=== PATIENT | female | born 1975 | race Caucasian/White ===

== ENCOUNTER 2017-11-03 03:42 | Observation (INO) | payer OTHER ==
[~2017-11-03] VITALS: Ht 163.8 cm; Wt 81.6 kg
[2017-11-03] VITALS (11 sets, daily range): BP systolic 85–102; BP diastolic 48–69; PULSE 61–73; TEMP 36.4–37.1; O2SAT 97–99; Ht 163.8 cm; Wt 81.6 kg
[~2017-11-03 03:42] MED LIST: IBUP-1428 PO; [UNRECOGNIZED DRUG - CODE] BU
[2017-11-03] MEDS ORDERED: ONDANSETRON INJ 2 MG/ML 2 ML VIAL IV STA (04:07)
[2017-11-03] MEDS ORDERED: KETOROLAC TROMETHAMINE 30 MG/ML VIAL IV STA (04:07)
[2017-11-03] MEDS ORDERED: SODIUM CHLORIDE 0.9% 1000ML 1,000 ML IV ONE (04:15)
[2017-11-03 04:30] LABS: BASO % 0.1 %; BASO ABS # 0.02 K/uL (0-0.2); EOS % 0.1 %; EOS ABS # 0.02 K/uL (0-0.5); HEMATOCRIT 43.8 % (37-47); HEMOGLOBIN 14.9 g/dL (12.0-16.0); IG# 0.06 K/uL (0.00-0.02); LYMPH % 11.5 %; LYMPH ABS # 1.81 K/uL (1.2-3.4); MEAN CELL VOLUME 93.2 fL (80-100); MEAN CORPUSCULAR HEMOGLOBIN 31.7 pg (25-34); MEAN PLATELET VOLUME 10.4 fL (7.4-10.4); MONO % 4.6 %; MONO ABS # 0.72 K/uL (0.11-0.59); NEUT % 83.3 %; NEUT ABS # 13.13 K/uL (1.4-6.5); PLATELET COUNT 262 K/uL (130-400); RED CELL DISTRIBUTION WIDTH CV 13.3 % (11.5-14.5); WHITE BLOOD COUNT 15.76 K/uL (4.8-10.8)
[2017-11-03 04:48] LABS: ALBUMIN 3.7 gm/dl (3.4-5.0); CALCIUM 8.6 mg/dl (8.5-10.1); CREATININE 0.79 mg/dl (0.60-1.20); POTASSIUM 3.8 mmol/L (3.5-5.1)
[2017-11-03 04:50] LABS: TOTAL PROTEIN 7.5 gm/dl (6.4-8.2)
[2017-11-03] MEDS ORDERED: CEFOXITIN 2000MG/60 ML D5W IV STA (05:50)
[2017-11-03] MEDS ORDERED: CEFOXITIN IV 2,000 MG in DEXTROSE 5% 50ML 50 ML IV STA (05:55)
--- NOTE | 2017-11-03 06:19 | DIAGNOSTIC IMAGING REPORT ---
GALLBLADDER-ABD LIMITED CLINICAL HISTORY: 42 years-old Female presenting with ruq abd pain. TECHNIQUE: Real-time grayscale and limited color Doppler ultrasound imaging of the abdomen limited to the right upper quadrant was performed. COMPARISON: None. FINDINGS: Pancreas: Visualized portions of the pancreatic head and body normal. Liver: Normal echogenicity and echotexture. The liver measures 16.5 cm in maximal sagittal dimension. No sonographic evidence of hepatic mass. Main portal vein patent with normal directional flow. Biliary: No intrahepatic biliary ductal dilatation. Common bile duct measures up to 5 mm in diameter. Gallbladder: Distended measuring over 16 cm in length with gallstones and sludge evident. Wall thickening measuring 4 to 5 mm. No pericholecystic fluid. Right kidney: Normal in appearance. No hydronephrosis. Ascites: None. IMPRESSION: Findings suggest early acute cholecystitis. If there is need for further clinical confirmation, nuclear medicine hepatobiliary scan could be obtained. Electronically signed by: Chandler Limon M.D. 11/03/2017 6:18 AM Dictated Date/Time: 11/03/2017 6:16 AM
--- NOTE | 2017-11-03 08:21 | History and Physical ---
History & Physical Date & Time of Service: Nov 03, 2017 at 08:12 Chief Complaint: Vomiting Bile,Nausea,Paiin In Mid Section Primary Care Physician: Nathan Duran M.D. History of Present Illness Source: patient 42 y/o female began with abdominal pain about a day and a half ago. She has had episodes of discomfort in the similar area but never this severe. She has a long history of reflux and has been on different proton pump inhibitors for many years. This seems to be different than those symptoms. The discomfort is located in the right subcostal region. Does not radiate around to her back. It began after eating macaroni and cheese and Oreos. It was associated with nausea but she did not begin vomiting until last night at about 9 PM. There was no hematemesis. She had diarrhea yesterday on one occasion but has not had chronic diarrhea. There was no melena or hematochezia. She denies dysuria and hematuria. She has not had fever or chills. She has no history of jaundice, pancreatitis or hepatitis. Past Medical/Surgical History PMH: Fibromyalgia Hypothyroidism, stopped taking medication one year ago Orthostatic hypotension Syncopal episodes probably secondary to orthostatic hypotension PSH: Bilateral carpal tunnel syndrome Tubal ligation [place] teeth Social History Smoking Status: Current Some Day Smoker Smokeless Tobacco Use: No Alcohol Use: none Immunizations History of Influenza Vaccine: No History of Tetanus Vaccine?: Yes Tetanus Immunization Date: May 02, 2001 History of Pneumococcal: No History of Hepatitis B Vaccine: No Multi-Drug Resistant Organisms History of MDRO: No Allergies Coded Allergies: Adhesives (Verified Allergy, Unknown, TAPE, 03/11/14) Home Medications Scheduled PRN Ibuprofen (Motrin), 800 MG PO TID PRN for Pain Review of Systems Constitutional: No fever, No chills Respiratory: No cough, No sputum Abdomen: + problem reported (as per HPI) Musculoskeletal: + muscle pain ( history of fibromyalgia) Genitourinary - Female: + problem reported (as per HPI) Integumentary: No rash Physical Exam Vital Signs Date Time Temp Pulse Resp B/P (MAP) Pulse Ox O2 Delivery O2 Flow Rate FiO2 11/03/17 07:10 36.5 66 16 99/68 100 Room Air 11/03/17 05:01 68 18 124/78 100 Room Air 11/03/17 03:49 36.5 78 18 146/93 100 Room Air General Appearance: WD/WN, no apparent distress Head: normocephalic Neck: supple, no adenopathy Respiratory/Chest: chest non-tender, lungs clear Cardiovascular: regular rate, rhythm Abdomen/GI: normal bowel sounds, soft, + tenderness (right subcostal region) Back: normal inspection Skin: normal color Diagnostics Laboratory Results Results Past 24 Hours Test 11/03/17 04:15 11/03/17 04:20 Range/Units Urine Color DK YELLOW Urine Appearance CLOUDY CLEAR Urine pH 5.0 4.5-7.5 Urine Specific [place] 1.030 1.000-1.030 Urine Protein NEG NEG Urine Glucose (UA) NEG NEG Urine Ketones 1+ NEG Urine Occult Blood 2+ NEG Urine Nitrite NEG NEG Urine Bilirubin NEG NEG Urine Urobilinogen NEG NEG Urine Leukocyte Esterase NEG NEG Urine WBC (Auto) 5-10 0-5 /hpf Urine RBC (Auto) 5-10 0-4 /hpf Urine Hyaline Casts (Auto) 1-5 0-5 /lpf Urine Epithelial Cells (Auto) >30 0-5 /lpf Urine Bacteria (Auto) 2+ NEG Urine Mucus PRESENT NONE PRSENT Urine Yeast (Auto) BUDDING NONE PRSENT Urine Test NEG NEG White Blood Count 15.76 4.8-10.8 K/uL Red Blood Count 4.70 4.2-5.4 M/uL Hemoglobin 14.9 12.0-16.0 g/dL Hematocrit 43.8 37-47 % Mean Corpuscular Volume 93.2 80-100 fL Mean Corpuscular Hemoglobin 31.7 25-34 pg Mean Corpuscular Hemoglobin Concent 34.0 32-36 g/dl Platelet Count 262 130-400 K/uL Mean Platelet Volume 10.4 7.4-10.4 fL Neutrophils (%) (Auto) 83.3 % Lymphocytes (%) (Auto) 11.5 % Monocytes (%) (Auto) 4.6 % Eosinophils (%) (Auto) 0.1 % Basophils (%) (Auto) 0.1 % Neutrophils # (Auto) 13.13 1.4-6.5 K/uL Lymphocytes # (Auto) 1.81 1.2-3.4 K/uL Monocytes # (Auto) 0.72 0.11-0.59 K/uL Eosinophils # (Auto) 0.02 0-0.5 K/uL Basophils # (Auto) 0.02 0-0.2 K/uL RDW Standard Deviation 46.0 36.4-46.3 fL RDW Coefficient of Variation 13.3 11.5-14.5 % Immature Granulocyte % (Auto) 0.4 % Immature Granulocyte # (Auto) 0.06 0.00-0.02 K/uL Sodium Level 137 136-145 mmol/L Potassium Level 3.8 3.5-5.1 mmol/L Chloride Level 105 98-107 mmol/L Carbon Dioxide Level 27 21-32 mmol/L Anion Gap 5.0 3-11 mmol/L Blood Urea Nitrogen 11 7-18 mg/dl Creatinine 0.79 0.60-1.20 mg/dl Est Creatinine Clear Calc Drug Dose 94.9 ml/min Estimated GFR () 106.3 Estimated GFR (Non- 91.7 BUN/Creatinine Ratio 13.5 10-20 Random Glucose 99 70-99 mg/dl Calcium Level 8.6 8.5-10.1 mg/dl Total Bilirubin 0.6 0.2-1 mg/dl Aspartate Amino Transf (AST/SGOT) 13 15-37 U/L Alanine Aminotransferase (ALT/SGPT) 28 12-78 U/L Alkaline Phosphatase 55 45-117 U/L Total Protein 7.5 6.4-8.2 gm/dl Albumin 3.7 3.4-5.0 gm/dl Globulin 3.8 2.5-4.0 gm/dl Albumin/Globulin Ratio 1.0 0.9-2 Lipase 102 73-393 U/L Microbiology Results 11/03/17 Urine Culture, Received Pending Diagnostic Radiology GALLBLADDER-ABD LIMITED CLINICAL HISTORY: 42 years-old Female presenting with ruq abd pain. TECHNIQUE: Real-time grayscale and limited color Doppler ultrasound imaging of the abdomen limited to the right upper quadrant was performed. COMPARISON: None. FINDINGS: Pancreas: Visualized portions of the pancreatic head and body normal. Liver: Normal echogenicity and echotexture. The liver measures 16.5 cm in maximal sagittal dimension. No sonographic evidence of hepatic mass. Main portal vein patent with normal directional flow. Biliary: No intrahepatic biliary ductal dilatation. Common bile duct measures up to 5 mm in diameter. Gallbladder: Distended measuring over 16 cm in length with gallstones and sludge evident. Wall thickening measuring 4 to 5 mm. No pericholecystic fluid. Right kidney: Normal in appearance. No hydronephrosis. Ascites: None. IMPRESSION: Findings suggest early acute cholecystitis. If there is need for further clinical confirmation, nuclear medicine hepatobiliary scan could be obtained. Impression Assessment and Plan This patient's history, physical exam, laboratory and ultrasound findings all consistent with early acute cholecystitis. I recommended a laparoscopic cholecystectomy. I explained the possible need to convert to an open procedure. I explained the possible complications of the procedures and answered the patient's questions. She has signed a consent form.
[2017-11-03] MEDS ORDERED: MoRPHine SULFATE 4 MG/ML 1 ML CARP\\VIAL IV PRN ×2 (08:30→18:30)
[2017-11-03] MEDS ORDERED: IV FLUIDS COMPLETED PRN (08:45)
[2017-11-03] MEDS: SODIUM CHLORIDE 0.9% 1000ML 1,000 ML IV SCH ×2 (10:21→19:49)
[2017-11-03] MEDS: ONDANSETRON INJ 2 MG/ML 2 ML VIAL IV PRN ×2 (10:54→19:49)
[2017-11-03] MEDS ORDERED: INFLUENZA ADMINISTRATION CHARGE ONE (14:00)
[2017-11-03] MEDS ORDERED: INFLUENZA VIRUS QUAD VACCINE 0.5 ML SYR IM. ONE (14:00)
[2017-11-03] MEDS ORDERED: HEPARIN SOD (PORCINE) 1000 UNIT/ML 10 ML VIAL ONE (15:47)
[2017-11-03] MEDS ORDERED: BUPIVACAINE 0.5 % 5 MG/1 ML MPF 30ML VIAL ONE (15:47)
[2017-11-03] MEDS ORDERED: CEFAZOLIN SOD 1 GM VIAL ONE ×2 (15:47→16:32)
[2017-11-03] MEDS ORDERED: PROPOFOL IV EMULSION 10 MG/ML 20 ML VIAL IV ONE (15:48)
[2017-11-03] MEDS ORDERED: LIDOCAINE HCL 2% 2 ML VIAL (20MG/ML) ONE (15:48)
[2017-11-03] MEDS ORDERED: MIDAZOLAM HCL 1 MG/ML 2ML VIAL ONE (15:49)
[2017-11-03] MEDS ORDERED: ROCURONIUM BROMIDE 10 MG/ML 5 ML VIAL IV ONE (15:50)
[2017-11-03] MEDS ORDERED: FENTANYL CITRATE INJ 50 MCG/1 ML 2 ML VIAL ONE (15:50)
[2017-11-03] MEDS ORDERED: ATROPINE SULFATE 0.1 MG/ML 5ML SYR IV PRN (16:15)
[2017-11-03] MEDS ORDERED: ONDANSETRON INJ 2 MG/ML 2 ML VIAL IV PRN (16:15)
[2017-11-03] MEDS ORDERED: EpHEDrine SULFATE INJ 50 MG/ML AMP IV PRN (16:15)
[2017-11-03] MEDS ORDERED: PHENYLEPHRINE 100MCG/ML 5ML SYR IV PRN (16:15)
[2017-11-03] MEDS ORDERED: ONDANSETRON INJ 2 MG/ML 2 ML VIAL ONE (17:08)
[2017-11-03] MEDS ORDERED: PHENYLEPHRINE HCL INJ 10 MG/ML VIAL ONE (17:36)
--- NOTE | 2017-11-03 18:06 | Anesthesiology Progress Note ---
Anesthesia Post Op Note Date & Time Nov 03, 2017 at 18:05 Vital Signs Pain Intensity: 5.0 Vital Signs Past 12 Hours Date Time Temp Pulse Resp B/P (MAP) Pulse Ox O2 Delivery O2 Flow Rate FiO2 11/03/17 11:02 Room Air 11/03/17 10:00 36.9 61 12 102/66 98 Room Air 11/03/17 09:51 36.5 70 17 122/62 98 11/03/17 08:41 67 18 116/57 99 Room Air 11/03/17 07:10 36.5 66 16 99/68 100 Room Air Notes Mental Status: alert / awake / arousable, participated in evaluation Pt Amnestic to Procedure: Yes Nausea / Vomiting: adequately controlled Pain: adequately controlled Airway Patency, RR, SpO2: stable & adequate BP & HR: stable & adequate Hydration State: stable & adequate Anesthetic Complications: no major complications apparent
[2017-11-03] MEDS ORDERED: HYDROmorphone INJ 2 MG/ML SYR/VIAL ONE (18:14)
[2017-11-03] MEDS: HYDROmorphone INJ 2 MG/ML SYR/VIAL IV PRN ×4 (18:16→18:31)
--- NOTE | 2017-11-03 18:31 | [facility] Post Operative Brief Note ---
Immediate Operative Summary Operative Date Nov 03, 2017. Pre-Operative Diagnosis Acute cholecystitis Post-Operative Diagnosis Same Procedure(s) Performed Laparoscopic cholecystectomy Surgeon Dr Burgos Special Delivery Mail Carrier Surgeon(s) None Estimated Blood Loss 25ML Findings See dictation Specimens A. Gallbladder Drains None Anesthesia General Complication(s) None Disposition Recovery Room / PACU
[2017-11-03] MEDS ORDERED: NURSING VERBAL MED ORDER ONE ×2 (21:15→22:45)
[2017-11-03] MEDS ORDERED: SODIUM CHLORIDE 0.9% 1000ML 500 ML IV SCH ×2 (21:45→23:00)
--- NOTE | 2017-11-03 23:45 | EMERGENCY ROOM VISIT NOTE ---
History First contact with patient: 03:52 Chief Complaint: GI ASSESSMENT Stated Complaint: CHOLECYSTITIS Nursing Triage Summary: Patient reports RUQ abdominal pain for the past day and tonight started with N/ V and some constipation. History of Present Illness The patient is a 42 year old female who presents to the Emergency Room with complaints of right quadrant abdominal pain that has been worsening over the past 36 hours. The patient states that her symptoms began shortly after eating macaroni and cheese and oriented disease. She has been with nausea and bilious emesis. She is not had fever or chills. No lower abdominal pain. She essentially has not been eating since onset of symptoms. She has been trying to drink fluids, but even this is difficult. The patient has had symptoms that sound like biliary colic for several months. She does have a history of GERD, and previous visit was on proton pump inhibitors. Her discomfort does not feel like her normal GERD. She denies chance of . She has not had abdominal surgery in the past. She rates her discomfort an 8/10. Review of Systems More than 10 systems were reviewed and otherwise negative with the exception of history of present illness. Past Medical/Surgical History Medical Problems: (1) Cholecystitis Family History No pertinent family history Social History Smoking Status: Current Every Day Smoker Smokeless Tobacco Use: No Housing Status: lives with family Current/Historical Medications Scheduled PRN Ibuprofen (Motrin), 800 MG PO TID PRN for Pain Physical Exam Vital Signs Date Time Temp Pulse Resp B/P (MAP) Pulse Ox O2 Delivery O2 Flow Rate FiO2 11/03/17 07:10 36.5 66 16 99/68 100 Room Air 11/03/17 05:01 68 18 124/78 100 Room Air 11/03/17 03:49 36.5 78 18 146/93 100 Room Air Physical Exam VITALS: Vitals are noted on the nurse's note and reviewed by myself. Vital signs stable. GENERAL: Well-developed, well-nourished, white female, who is in no acute distress and resting comfortably. Patient is cooperative with the examination. HEAD: Normocephalic atraumatic. HEART: Regular rate and rhythm without murmurs gallops or rubs. LUNGS: Clear to auscultation bilaterally without wheezes, rales or rhonchi. No retractions or accessory muscle use. ABDOMEN: Positive normal bowel sounds x 4. Soft with distinct right upper quadrant tenderness on palpation. No rebound or guarding. No lower abdominal tenderness. No CVA tenderness. MUSCULOSKELETAL: No muscle atrophy, erythema, or edema noted. Full range of motion without joint tenderness in all extremities. Medical Decision & Procedures ER Provider Diagnostic Interpretation: GALLBLADDER-ABD LIMITED CLINICAL HISTORY: 42 years-old Female presenting with ruq abd pain. TECHNIQUE: Real-time grayscale and limited color Doppler ultrasound imaging of the abdomen limited to the right upper quadrant was performed. COMPARISON: None. FINDINGS: Pancreas: Visualized portions of the pancreatic head and body normal. Liver: Normal echogenicity and echotexture. The liver measures 16.5 cm in maximal sagittal dimension. No sonographic evidence of hepatic mass. Main portal vein patent with normal directional flow. Biliary: No intrahepatic biliary ductal dilatation. Common bile duct measures up to 5 mm in diameter. Gallbladder: Distended measuring over 16 cm in length with gallstones and sludge evident. Wall thickening measuring 4 to 5 mm. No pericholecystic fluid. Right kidney: Normal in appearance. No hydronephrosis. Ascites: None. IMPRESSION: Findings suggest early acute cholecystitis. If there is need for further clinical confirmation, nuclear medicine hepatobiliary scan could be obtained. Laboratory Results 11/03/17 04:20 Red Blood Count 4.70, Mean Corpuscular Volume 93.2, Mean Corpuscular Hemoglobin 31.7, Mean Corpuscular Hemoglobin Concent 34.0, Mean Platelet Volume 10.4, Neutrophils (%) (Auto) 83.3, Lymphocytes (%) (Auto) 11.5, Monocytes (%) (Auto) 4.6, Eosinophils (%) (Auto) 0.1, Basophils (%) (Auto) 0.1, Neutrophils # (Auto) 13.13, Lymphocytes # (Auto) 1.81, Monocytes # (Auto) 0.72, Eosinophils # (Auto) 0.02, Basophils # (Auto) 0.02 11/03/17 04:20 Test 11/03/17 04:15 11/03/17 04:20 Urine Color DK YELLOW Urine Appearance CLOUDY (CLEAR) Urine pH 5.0 (4.5-7.5) Urine Specific [place] 1.030 (1.000-1.030) Urine Protein NEG (NEG) Urine Glucose (UA) NEG (NEG) Urine Ketones 1+ (NEG) Urine Occult Blood 2+ (NEG) Urine Nitrite NEG (NEG) Urine Bilirubin NEG (NEG) Urine Urobilinogen NEG (NEG) Urine Leukocyte Esterase NEG (NEG) Urine WBC (Auto) 5-10 /hpf (0-5) Urine RBC (Auto) 5-10 /hpf (0-4) Urine Hyaline Casts (Auto) 1-5 /lpf (0-5) Urine Epithelial Cells (Auto) >30 /lpf (0-5) Urine Bacteria (Auto) 2+ (NEG) Urine Mucus PRESENT (NONE PRSENT) Urine Yeast (Auto) BUDDING (NONE PRSENT) Urine Test NEG (NEG) White Blood Count 15.76 K/uL (4.8-10.8) Red Blood Count 4.70 M/uL (4.2-5.4) Hemoglobin 14.9 g/dL (12.0-16.0) Hematocrit 43.8 % (37-47) Mean Corpuscular Volume 93.2 fL (80-100) Mean Corpuscular Hemoglobin 31.7 pg (25-34) Mean Corpuscular Hemoglobin Concent 34.0 g/dl (32-36) Platelet Count 262 K/uL (130-400) Mean Platelet Volume 10.4 fL (7.4-10.4) Neutrophils (%) (Auto) 83.3 % Lymphocytes (%) (Auto) 11.5 % Monocytes (%) (Auto) 4.6 % Eosinophils (%) (Auto) 0.1 % Basophils (%) (Auto) 0.1 % Neutrophils # (Auto) 13.13 K/uL (1.4-6.5) Lymphocytes # (Auto) 1.81 K/uL (1.2-3.4) Monocytes # (Auto) 0.72 K/uL (0.11-0.59) Eosinophils # (Auto) 0.02 K/uL (0-0.5) Basophils # (Auto) 0.02 K/uL (0-0.2) RDW Standard Deviation 46.0 fL (36.4-46.3) RDW Coefficient of Variation 13.3 % (11.5-14.5) Immature Granulocyte % (Auto) 0.4 % Immature Granulocyte # (Auto) 0.06 K/uL (0.00-0.02) Anion Gap 5.0 mmol/L (3-11) Est Creatinine Clear Calc Drug Dose 94.9 ml/min Estimated GFR () 106.3 Estimated GFR (Non- 91.7 BUN/Creatinine Ratio 13.5 (10-20) Calcium Level 8.6 mg/dl (8.5-10.1) Total Bilirubin 0.6 mg/dl (0.2-1) Aspartate Amino Transf (AST/SGOT) 13 U/L (15-37) Alanine Aminotransferase (ALT/SGPT) 28 U/L (12-78) Alkaline Phosphatase 55 U/L (45-117) Total Protein 7.5 gm/dl (6.4-8.2) Albumin 3.7 gm/dl (3.4-5.0) Globulin 3.8 gm/dl (2.5-4.0) Albumin/Globulin Ratio 1.0 (0.9-2) Lipase 102 U/L (73-393) Medications Administered Medications (Trade) Dose Ordered Sig/Jian Route Start Time Stop Time Status Last Admin Dose Admin Sodium Chloride 1,000 ml @ 999 mls/hr Q1H1M ONCE IV 11/03/17 04:15 11/03/17 05:15 DC 11/03/17 04:22 999 MLS/HR Ketorolac Tromethamine (Toradol Inj) 30 mg NOW STAT IV 11/03/17 04:07 11/03/17 04:10 DC 11/03/17 04:23 30 MG Ondansetron HCl (Zofran Inj) 4 mg NOW STAT IV 11/03/17 04:07 11/03/17 04:10 DC 11/03/17 04:22 4 MG Cefoxitin Sodium 2000 mg/Dextrose 60 ml @ 120 mls/hr NOW STAT IV 11/03/17 05:55 11/03/17 06:24 DC 11/03/17 06:10 120 MLS/HR Ondansetron HCl (Zofran Inj) 4 mg Q6H PRN IV 11/03/17 08:30 12/03/17 08:29 11/03/17 19:49 4 MG Morphine Sulfate (MoRPHine SULFATE INJ) 4 mg Q2H PRN IV 11/03/17 08:30 11/03/17 18:31 DC 11/03/17 13:49 4 MG ED Course Physical exam and history were performed. Nursing notes, EMR, and Medication List were personally reviewed. Patient appears to have right quadrant abdominal pain for roughly the past and a half. She is exquisitely tender in the right upper quadrant. IV access was established and labs were obtained. The patient was hydrated medicated as above. She was sent to ultrasound. The patient does have an elevated white blood cell count of greater than 15, 000. She does not have significant anemia or gross electrolyte imbalance. Lipase and transaminases are nondiagnostic. Ultrasound is suggestive of an early acute cholecystitis, which clinically does correlate with her symptoms. The patient case was discussed with the on-call surgeon, Dr. Burgos. Dr. Burgos will evaluate the patient here in the department for further care and management. Please see his dictation for further patient course, plan, and disposition. The chart was completed utilizing [employer] Speech Voice Recognition Software. Grammatical errors, random word insertions, pronoun errors, and incomplete sentences are an occasional consequence of this system due to software limitations, ambient noise, and hardware issues. Any formal questions or concerns about the content, text, or information contained within the body of this dictation should be directly addressed to the provider for clarification. . Medical Decision Differential diagnosis: Etiologies such as appendicitis, diverticulitis, PUD, biliary pathology, UTI, pancreatitis, obstruction, mesenteric ischemia, aortic pathology, infections, inflammatory bowel disease, renal colic, as well as others were entertained. Impression Primary Impression: Cholecystitis Departure Information Dispostion Still a Patient Condition FAIR Referrals ,Nathan Everett M.D. (PCP) Forms HOME CARE DOCUMENTATION FORM, IMPORTANT VISIT INFORMATION Patient Instructions [facility]
[2017-11-03] MEDS: OXYCODONE/ACETAMINOPHEN 5-325 TAB PO PRN (23:53)
[2017-11-04 03:38] VITALS: BP 89/55; PULSE 62; TEMP 37; O2SAT 100
[2017-11-04] MEDS: ONDANSETRON INJ 2 MG/ML 2 ML VIAL IV PRN ×2 (03:53→09:49)
[2017-11-04] MEDS: OXYCODONE/ACETAMINOPHEN 5-325 TAB PO PRN ×2 (03:54→14:36)
[2017-11-04] MEDS: SODIUM CHLORIDE 0.9% 1000ML 1,000 ML IV SCH ×2 (05:27→15:07)
[2017-11-04 07:30] VITALS: BP 97/61; PULSE 62; TEMP 36.8; O2SAT 100
[2017-11-04 12:05] VITALS: BP 90/54; PULSE 71; TEMP 37.6; O2SAT 98
--- NOTE | 2017-11-04 14:44 | Surgery Progress Note ---
Surgery Progress Note Date of Service Nov 04, 2017. Subjective Post OP Day: 1 + feeling well, + ambulating, + pain controlled (moderate), + nausea, + diet ( tolerated regular diet), No vomiting Objective Vital Signs: Date Time Temp Pulse Resp B/P (MAP) Pulse Ox O2 Delivery O2 Flow Rate FiO2 11/04/17 12:05 37.6 71 16 90/54 (66) 98 Room Air 11/04/17 07:30 36.8 62 18 97/61 (73) 100 Room Air 11/04/17 07:12 Room Air 11/04/17 03:38 37.0 62 16 89/55 (66) 100 Room Air 11/03/17 23:55 Room Air 11/03/17 23:30 87/55 (66) 11/03/17 23:27 37.1 71 16 89/53 (65) 98 Room Air 11/03/17 22:34 85/69 (74) 11/03/17 22:05 36.6 71 17 89/54 (66) 99 Room Air 11/03/17 21:05 36.4 73 16 86/57 (67) 99 Room Air 11/03/17 20:20 95/60 (72) 11/03/17 20:05 36.5 73 16 85/48 (60) 97 Nasal Cannula 2.0 11/03/17 19:59 95/61 (72) 11/03/17 19:35 36.7 71 16 89/56 (67) 99 Nasal Cannula 2.0 11/03/17 19:05 99 Nasal Cannula 2.0 11/03/17 19:05 36.7 72 12 98/61 (73) 99 Nasal Cannula 2.0 11/03/17 19:05 99 Nasal Cannula 2.0 11/03/17 18:45 80 18 113/75 100 Nasal Cannula 2 11/03/17 18:35 36.8 81 14 112/66 100 Nasal Cannula 2 11/03/17 18:25 85 12 109/71 100 Nasal Cannula 2 11/03/17 18:15 73 12 112/73 100 Oxymask 10 11/03/17 18:05 82 20 110/73 100 Oxymask 10 11/03/17 17:59 36.6 92 16 111/67 100 Oxymask 10 Abdomen: normal bowel sounds, non distended, + tenderness (moderate in RUQ and below the upper midline imcision) Assessment & Plan S/P lap ralph Stable Incisional pain Nausea, will add Phenergan Would not D/C today, keep for pain and nausea control
[2017-11-04] MEDS ORDERED: PROMETHAZINE HCL INJ 12.5 MG in SODIUM CHLORIDE 0.9% 50ML 50 ML IV PRN (14:45)
[2017-11-04 15:23] VITALS: BP 97/63; PULSE 72; TEMP 37.2; O2SAT 99
[2017-11-04 22:52] VITALS: BP 100/60; PULSE 70; TEMP 37.2; O2SAT 99
[2017-11-05] MEDS: SODIUM CHLORIDE 0.9% 1000ML 1,000 ML IV SCH (01:07)
[2017-11-05 07:00] VITALS: BP 103/67; PULSE 69; TEMP 37.2; O2SAT 100
--- NOTE | 2017-11-05 10:36 | Surgery Progress Note ---
Surgery Progress Note Date of Service Nov 05, 2017. Subjective Post OP Day: 2 (s/p laparoscopic cholecystectomy) + feeling well abdominal soreness, controlled with Percocet Tenderness and swelling at upper incision Nausea better controlled, tolerated breakfast No chest pain or shortness of breath Objective Vital Signs: Date Time Temp Pulse Resp B/P (MAP) Pulse Ox O2 Delivery O2 Flow Rate FiO2 11/05/17 07:18 Room Air 11/05/17 07:00 37.2 69 16 103/67 (79) 100 Room Air 11/05/17 00:35 Room Air 11/04/17 22:52 37.2 70 16 100/60 (73) 99 Room Air 11/04/17 15:50 Room Air 11/04/17 15:23 37.2 72 16 97/63 (74) 99 Room Air 11/04/17 12:05 37.6 71 16 90/54 (66) 98 Room Air General Appearance: WD/WN, no apparent distress Head: normocephalic, atraumatic Neck: trachea midline Respiratory/Chest: no respiratory distress, no accessory muscle use Abdomen: non distended, soft, no organomegaly, no pulsatile mass, + tenderness (at incision sites , moderate tenderness at the subxiphoid incision site) Incision(s): clean, dry, intact, no erythema, no drainage, findings (steri strips present and intact) Assessment & Plan POD # 2 s/p laparoscopic Cholecystectomy -vitals stable - pain controlled with PO Percocet - ambulating and urinating without difficulty - Nausea better controlled today Plan: Hopeful discharge this afternoon Continue Pain medication as needed encouraged ambulation discharge instructions reviewed with patient and she understood f/u 2 weeks in office Rx for Percocet will be given Discussed patient with Dr. Burgos who agrees with above Doing well. Can D/C to home Instructions discussed
[2017-11-05] MEDS ORDERED: OXYC-57 PO (10:37)
--- NOTE | 2017-11-05 10:42 | Discharge Instructions ---
Discharge Instructions Date of Service Nov 05, 2017. Admission Reason for Admission: Cholecystitis Discharge Discharge Diagnosis / Problem: same Discharge Goals Goal(s): Decrease discomfort, Improve function Activity Recommendations Activity Limitations: as noted below No heavy lifting over 10-20 pounds for 2 weeks No strenuous activity until cleared by surgeon No submerging incisions underwater for 2 weeks (no bathing, swimming, or hot tubs) No driving while taking narcotic pain medication or until you are pain free . Instructions / Follow-Up Instructions / Follow-Up You may shower tonight when you get home, leave steri strips on incisions for 7 days and then remove. They may fall off on their own that is okay Cover incisions if there is drainage present Walking and light activity is encouraged to prevent blood clots from forming You will be given Percocet as needed for moderate to severe pain. This medication can make you drowsy. You may take Ibuprofen/Extra strength Tylenol as needed for mild pain. If you require Percocet do not take Tylenol between doses of Percocet as Percocet already has Tylenol in it. Substitute with Ibuprofen instead. Follow-up in surgical office in 2 weeks, please call office at [phone] to make an appointment Current Hospital Diet Patient's current hospital diet: Regular Diet Discharge Diet Recommended Diet: Regular Diet (as tolerated, would advised to avoid fatty/ greasy foods for next few weeks) Procedures Procedures Performed: Laparoscopic cholecystectomy Pending Studies Studies pending at discharge: yes List of pending studies: Gallbladder pathology- will be reviewed at follow up visit Medical Emergencies . Who to Call and When: Medical Emergencies: If at any time you feel your situation is an emergency, please call 911 immediately. . Non-Emergent Contact Non-Emergency issues call your: Primary Care Provider, Surgeon Call Non-Emergent contact if: you have a fever, temperature is above 101, your pain is not controlled, your pain is worsening, your pain is unusual for you, wound has increased drainage, wound has increased redness, wound has increased pain . "Provider Documentation" section prepared by Becky Gibbs. . VTE Core Measure Inpt VTE Proph given/why not?: SCD's [place] Drug Monitoring Program Search Results: patient reviewed within database, no issues identified
[2017-11-05] MEDS: OXYCODONE/ACETAMINOPHEN 5-325 TAB PO PRN (14:32)
[2017-11-05 14:49] VITALS: BP 103/67; PULSE 69; TEMP 37.2; O2SAT 100
--- NOTE | 2017-11-13 13:12 | Discharge Summary ---
Discharge Summary Dates Admission Date / Time: Nov 03, 2017 at 08:33 Discharge Date: Nov 05, 2017 Dispostion / Condition Discharge Disposition: Home Condition at Discharge: Good Principal Diagnosis (1) Acute cholecystitis Problem List (1) Fibromyalgia (2) Orthostatic hypotension (3) Hypothyroidism (4) Syncopal episodes Consultations / Procedures Procedures: Laparoscopic Cholecystectomy Pending Studies / Follow-Up Gallbladder pathology- will be reviewed at follow up visit Medication Reconciliation New Medications: Oxycodone/Acetaminophen 5MG/325MG (Percocet 5MG/325MG) Tab 1 TABLET PO Q4H PRN for Pain, #18 TAB Continued Medications: Ibuprofen (Motrin) 800 Mg Tab 800 MG PO TID PRN for Pain Admission HPI Per the Admitting provider: 42 y/o female began with abdominal pain about a day and a half ago. She has had episodes of discomfort in the similar area but never this severe. She has a long history of reflux and has been on different proton pump inhibitors for many years. This seems to be different than those symptoms. The discomfort is located in the right subcostal region. Does not radiate around to her back. It began after eating macaroni and cheese and Oreos. It was associated with nausea but she did not begin vomiting until last night at about 9 PM. There was no hematemesis. She had diarrhea yesterday on one occasion but has not had chronic diarrhea. There was no melena or hematochezia. She denies dysuria and hematuria. She has not had fever or chills. She has no history of jaundice, pancreatitis or hepatitis. Admission Exam Per the Admitting provider: General Appearance: WD/WN, no apparent distress Head: normocephalic Neck: supple, no adenopathy Respiratory/Chest: chest non-tender, lungs clear Cardiovascular: regular rate, rhythm Abdomen/GI: normal bowel sounds, soft, + tenderness (right subcostal region) Back: normal inspection Skin: normal color Hospital Course (1) Acute cholecystitis Patient was taken to operating room for laparoscopic cholecystectomy possible open. Patient tolerated procedure well without any complications. Was transferred to recovery room and then medical/surgical floor in stable condition. Her diet was advanced to regular diet. She was kept on IV fluids, PO Percocet as needed for pain with breakthrough IV Morphine, IV Zofran as needed for nausea, and activity as tolerated. She was evaluated on POD # 1 and had moderate pain which was slightly controlled and nausea. IV Phenergan was added to help relieve nausea and pain medication was continued. Given the nausea and pain she was kept one more night for adequate pain control. She was evaluated on POD # 2 and doing better, nausea controlled, pain mild but better, ambulating the hallways, tolerated regular diet for breakfast, and urinating without difficulty. She was discharged home on POD # 2 in stable condition. Overall hospital course was uneventful. Discharge Instructions as given to patient Copies To Primary Care Provider: Nathan Duran M.D..
--- NOTE | 2017-12-05 11:12 | OPERATIVE REPORT ---
DATE OF OPERATION: 11/03/2017 PREOPERATIVE DIAGNOSIS: Acute cholecystitis. POSTOPERATIVE DIAGNOSIS: Same. PROCEDURE: Laparoscopic cholecystectomy. SURGEON: Dr. Norbert Burgos. FINDINGS: The gallbladder was elongated with a redundant fundus. There were stones and sludge within the lumen. The cystic duct was not dilated. The liver was of normal size and contour and the visible bowel appeared normal. There was some fluid surrounding the gallbladder. TECHNIQUE: The patient was given a general anesthetic and the area was prepped and draped in the usual sterile fashion. Transverse incision was made below the umbilicus and carried down through the subcutaneous tissue to the fascia, which was grasped with 2 Evita clamps and incised between. The peritoneum was identified, incised, and the introducer was placed bluntly. The abdomen was then insufflated to a pressure of 15 mmHg with carbon dioxide. The upper midline, mid clavicular and anterior axillary introducers were placed under direct vision through small skin incisions. Traction was placed on the gallbladder and beginning on the lateral aspect of the infundibulum, the peritoneum was peeled down towards the common bile duct. I then worked anteriorly and continued to dissect the peritoneum connective tissue and lymphatics away from the gallbladder wall. I divided the attachments to the infundibulum on the lateral and medial sides, allowing better mobility and worked posteriorly until I could identify the cystic duct. The cystic duct was then isolated and skeletonized. Three clips were placed proximally, one near the gallbladder junction with the cystic duct and it was divided. Further dissection was then carried out posterior to that area, where the cystic artery was isolated, clamped twice proximally and once near the gallbladder and divided. The gallbladder was then peeled off the liver bed. It was difficult to establish a plane between the gallbladder and the liver at that point. There was some bleeding from the liver, which was controlled with cautery. Further dissection was then carried until the gallbladder was completely freed away from the liver. It was placed into an Endobag and brought out through the upper midline incision. The gallbladder bed of the liver was again inspected. The subdiaphragmatic and subhepatic spaces were irrigated and the irrigation removed. The gallbladder bed of the liver was inspected. Any other oozing was controlled with cautery. The subdiaphragmatic and subhepatic spaces were irrigated and irrigation removed and that was repeated until the return was clear. The gas was allowed to escape and the introducers were removed. The fascia of the umbilical and upper midline introducer sites was closed with interrupted 0 Vicryl and skin of all the incisions was closed with 4-0 Monocryl in either an interrupted or running subcuticular fashion. The skin was cleansed, dried, benzoin placed, and Steri-Strips applied. Estimated blood loss was 25 mL. Sponge, needle and instrument counts were correct prior to closure. The patient tolerated the surgical procedure without complication and was transferred to recovery. I attest to the content of the Intraoperative Record and any orders documented therein. Any exception s are noted below.
== END 2017-11-05 15:11 | disposition home or self-care (01) ==
LOC: C.EDB 03:43 → C.MSN 08:33 → ENRESERV 09:22
PROVIDERS: ADMIT Surgery; ATTEND Surgery
DX: K80.10 Calculus of gallbladder with chronic cholecystitis without obstruction (principal); M79.7 Fibromyalgia; I95.1 Orthostatic hypotension; E03.9 Hypothyroidism, unspecified; K21.9 Gastro-esophageal reflux disease without esophagitis; Z98.51 Tubal ligation status; Z98.818 Other dental procedure status; F17.200 Nicotine dependence, unspecified, uncomplicated

== ENCOUNTER 2018-06-14 21:11 | Emergency (ER) | payer OTHER ==
[~2018-06-14] VITALS: Ht 162.6 cm; Wt 86.8 kg
[~2018-06-14 21:11] MED LIST changes: -[UNRECOGNIZED DRUG - CODE] BU
[2018-06-14 21:15] VITALS: TEMP 37; Ht 162.6 cm; Wt 86.8 kg
[2018-06-14] MEDS ORDERED: AMOX875T PO ×2 (21:33→21:44)
[2018-06-14] MEDS ORDERED: AMOXICILLIN/CLAVULANATE TAB 875 MG TAB PO ONE (21:35)
[2018-06-14 21:49] VITALS: BP 134/85; PULSE 106; O2SAT 96
--- NOTE | 2018-06-15 00:25 | EMERGENCY ROOM VISIT NOTE ---
History Report prepared by Koffi: Fredi Redmond Under the Supervision of: Dr. Elvis Hyde M.D. First contact with patient: 21:19 Chief Complaint: DENTAL PAIN Stated Complaint: JAW INFECTION, UPPER LEFT Nursing Triage Summary: c/o left upper jaw pain hx of root canal " a long time ago.' History of Present Illness The patient is a 43 year old female who presents to the Emergency Room with complaints of constant swelling in her left jaw beginning four days ago. The patient states she had her top left rear molar was extracted 2-3 years ago. She reports a part of the root broke off, and it was not able to be removed. The patient notes she intermittently has infections with her broken root. She states the area where the molar was removed was leaking pus. The patient reports she also noticed a large lump higher up towards the bone. She reports yesterday she developed a low grade fever of 99.7, and it was still swollen and producing pus. The patient notes she also developed balance issues yesterday. She denies vomiting, but she has been nauseous for a few days. The patient states her last normal menstrual period was yesterday, and there is no chance of . Source of History: patient Onset: four days ago Position: jaw (left) Quality: other (swelling) Timing: constant Associated Symptoms: + fevers (99.7), + nausea, No vomiting Note: Associated symptoms: producing pus, balance issues Review of Systems See HPI for pertinent positives & negatives. A total of 10 systems reviewed and were otherwise negative. Past Medical & Surgical Medical Problems: (1) Cholecystitis (2) Fibromyalgia (3) Hypothyroidism (4) Orthostatic hypotension (5) Syncopal episodes Family History Patient reports no known family medical history. Social History Smoking Status: Current Every Day Smoker Housing Status: lives with family Current/Historical Medications Scheduled Amoxicillin & Pot Clavulanate (Augmentin 875-125 mg), 875 MG PO BID Amoxicillin & Pot Clavulanate (Augmentin 875-125 mg), 875 MG PO BID Scheduled PRN Ibuprofen (Motrin), 800 MG PO TID PRN for Pain Allergies Coded Allergies: Adhesives (Verified Allergy, Unknown, TAPE, 03/11/14) Physical Exam Vital Signs Date Time Temp Pulse Resp B/P (MAP) Pulse Ox O2 Delivery O2 Flow Rate FiO2 06/14/18 21:49 106 18 134/85 96 06/14/18 21:15 37.0 106 18 134/85 96 Room Air Physical Exam Constitutional: Vital signs reviewed. Eyes: Pupils are equal round reactive to light. Conjunctiva are noninjected. ENT: Pharynx is clear without erythema or exudate. Mucous membranes are moist. Neck supple without meningeal signs. Mild gingival soft tissues swelling without fluctuance or induration or purulent drainage. No sinus tenderness, swelling, or opacification. Left TM clear without mastoid tenderness. No cervical lymphadenopathy. Respiratory: Clear to auscultation bilaterally. Breath sounds are equal bilaterally. Cardiovascular: Regular rate and rhythm. No rubs or gallops. Neurological: The patient is awake and alert. No focal deficits. Psychiatric: Normal affect. Medical Decision & Procedures Medications Administered Medications (Trade) Dose Ordered Sig/Jian Route Start Time Stop Time Status Last Admin Dose Admin Amoxicillin/ Clavulanate Potassium (Augmentin Tab) 1,750 mg STK-MED ONCE PO 06/14/18 21:35 06/14/18 21:36 DC 06/14/18 21:39 1,750 MG ED Course 2121: The patient was evaluated in room B10. A complete history and physical exam was performed. I discussed the physical examination results with the patient. She agreed with the treatment plan and being discharged with antibiotics. She will be discharged after receiving a dose of Augmentin in the department. 2134: Ordered Augmentin 1750mg PO Medical Decision This is a 43-year-old female who presents with facial pain. Differential diagnosis includes dental abscess, cellulitis, caries. I did perform a limited focused review of portions of the patient's old chart on the electronic medical record. The patient was admitted in 2013 with facial cellulitis and two molar apical abscesses on the left side. I did evaluate the patient as noted above. The patient does not have any signs of facial swelling or cellulitis. She does have some mild tenderness to the gingiva on the left maxillary side where she had a tooth extraction. No pus was noted. She does not have fluctuance or induration to suggest a drainable abscess. I do suspect that she does have a developing abscess given the pus that she noted earlier. I did treat her with Augmentin. She is discharged with a 10 day prescription and referred to Dr. Mustafa of oral surgery for further care and evaluation should she not be able to follow-up with her dentist. She was given return instructions and discharged in good condition. Medication Reconcilliation Current Medication List: was personally reviewed by me Blood Pressure Screening Patient's blood pressure: Elevated blood pressure Blood pressure disposition: Referred to PCP Impression Primary Impression: Dental abscess Scribe Attestation The scribe's documentation has been prepared under my direct and personally reviewed by me in its entirety. I confirm that the note above accurately reflects all work, treatment, procedures, and medical decision making performed by me. Departure Information Dispostion Home / Self-Care Prescriptions Amoxicillin & Pot Clavulanate (Augmentin 875-125 mg) 1 Tab Tab 875 MG PO BID for 10 Days, #20 TAB Prov: Elvis Hyde M.D. 06/14/18 Amoxicillin & Pot Clavulanate (Augmentin 875-125 mg) 1 Tab Tab 875 MG PO BID for 10 Days, #20 TAB Prov: Elvis Hyde M.D. 06/14/18 Referrals ,Nathan Everett M.D. (PCP) Pranav Mustafa D.M.D. Forms HOME CARE DOCUMENTATION FORM, IMPORTANT VISIT INFORMATION Patient Instructions Dental Abscess, My [facility] Additional Instructions You have been examined and treated today on an emergency basis only. This is not a substitute for, or an effort to provide, complete comprehensive medical care. It is impossible to recognize and treat all injuries or illnesses in a single emergency department visit. It is therefore important that you follow up closely with your dentist or Dr. Mustafa of oral surgery. Call as soon as possible for an appointment. Return for worsening symptoms or if you develop fever over 101, vomiting, facial swelling, or any other concerning symptoms.
[2018-06-15] MEDS ORDERED: AMOXICILLIN/CLAVULANATE TAB 875 MG TAB PO SCH (09:00)
== END 2018-06-14 21:50 | disposition home or self-care (01) ==
LOC: C.EDB 21:12
DX: K04.7 Periapical abscess without sinus (principal); R03.0 Elevated blood-pressure reading, without diagnosis of hypertension; F17.200 Nicotine dependence, unspecified, uncomplicated; Z88.8 Allergy status to other drugs, medicaments and biological substances

== ENCOUNTER 2022-01-31 07:18 | Inpatient (IN) ==
--- NOTE | 2021-11-13 12:08 | PAT Medication Instructions ---
Medication Instructions Date of Service November 13, 2021 Home Medications Medication Instructions Recorded ibuprofen 800 mg tablet 800 mg PO Q8H PRN #30 tab 07/10/21 ibuprofen 800 mg tablet 800 mg PO Q8H PRN cholecalciferol (vitamin D3) 50 mcg (2,000 unit) tablet (Vitamin D3) 50 mcg PO QAM levothyroxine 50 mcg tablet 50 mcg PO QAM ASK your surgeon for instructions ibuprofen 800 mg tablet 800 mg PO Q8H PRN DO NOT take the morning of surgery cholecalciferol (vitamin D3) 50 mcg (2,000 unit) tablet (Vitamin D3) 50 mcg PO QAM Take morning of surgery With a small sip of water, OTHERWISE NOTHING TO EAT OR DRINK AFTER MIDNIGHT: levothyroxine 50 mcg tablet 50 mcg PO QAM Other Notes If you have any questions please call us at [phone] or [phone] or [phone] or [phone]
--- NOTE | 2021-11-23 10:23 | Anesthesiology Consultation ---
Date of Service November 23, 2021 Assessment & Plan (1) Encounter for pre-operative examination: - surgeon ordered medical clearance. - Case discussed with Dr. Lentz who agreed nothing further needed at this time other than upcoming medical clearance. - COVID screening: Per assessment on 11/23/2021: Travel screen negative, no known COVID-19 positive contacts or current COVID-19 related symptoms in past 2 weeks. Patient vaccinated. Surgeon arranging preop COVID testing, scheduled 12/13/2021 [place]. Awaiting results. Chart Review Chart Review: Acceptable Risk for Surgery (pending medical clearance) and Pat ient seen in Pre Admission Testing Teaching & Discussion Pre-Anesthesia Teaching/Discussion Notes: Instructed NPO after midnight before surgery, except medications with 15 cc of water. Medication instructions provided according to the PAT guidelines. History Surgery Operation Date: 12/15/21 07:45 Proposed Procedures p L5-S1 Decompression and Fusion, Spinal Cord Monitoring - Jarrod Dutton DO Height/Weight Height: 5 ft 4 in Weight: 98.1 kg Allergies Allergy/AdvReac Type Severity Reaction Status Date / Time adhesive Allergy Unknown Skin Verified 11/13/21 08:27 Irritation Medications Home Medications Medication Instructions Recorded Confirmed Last Taken ibuprofen 800 mg tablet 800 mg PO Q8H PRN #30 tab 07/10/21 11/13/21 Unknown cholecalciferol (vitamin D3) 50 50 mcg PO QAM 11/13/21 11/13/21 Unknown mcg (2,000 unit) tablet (Vitamin D3) levothyroxine 50 mcg tablet 50 mcg PO QAM 11/13/21 11/13/21 Unknown Past Medical History Medical History (Updated 11/23/21 @ 16:18 by Margareth Ambrose PA-C) Acid reflux rare Anemia 13.8/42.5 11/2021 pre-op labs Fibromyalgia History of anesthesia reaction woke up during hand surgery in 2002 with initial carpal tunnel release/ severe hypotension after gallbladder surgery once back to medical unit History of COVID-05 June 2020 > not hospitalized > progressive dyspnea > atelectatic changes on CXR 06/2020 > pt reports residual dyspnea on exertion, cough and wheezing Hx of sepsis 2014 due to dental infection Hypermobility of joint Hypothyroidism Migraine Orthostatic hypotension lightheaded with positional change, denies syncope x several yrs Osteoarthritis Peripheral neuropathy Raynauds syndrome Schmorl's nodes Spinal stenosis Stress incontinence mild Vitamin D deficiency Patient denies h/o stroke, seizures, heart attack, heart failure, DM, HTN, blood clots or blood transfusions. Exercise / Class Metabolic Activity II 4-5 Yardwork/Stairs/Walk up hill (SOB with 1 FOS, ongoing since COVID illness 05/2020) Past Family History Family History Mother Cancer Colorectal cancer Cervical cancer Skin cancer Denies family history of Ovarian cancer Prostate cancer Breast cancer Lung cancer Past Surgical History Surgical History History of dilatation and curettage History of esophagogastroduodenoscopy (EGD) History of tooth extraction S/p bilateral carpal tunnel release S/P cholecystectomy 11/04/2017: Grade 2 view, MAC#3, ETT#7.0. No issues per anesthesia postop progress note. S/P tubal ligation [place] teeth removed Past Anesthesia History Other (awareness under anesthesia, severe hypotension after cholecystectomy; mother hypothermia and hypotension intraop) History of PONV No Hx of Motion Sickness and History of PONV Social History Smoking Status: Current every day smoker tobacco type: cigarettes Smoking cigarettes per day: 5 cigs per day Do You Dip or Chew Tobacco: No Hx Alcohol Use: No Hx Substance Use: No substance use type: does not use Substance Use Type Other:: THC vape pen > (delta 8) Review of Systems Snoring, denies witnessed apneas. Sleep study > 10 yrs ago demonstrated mild sleep apnea, denies being on treatment. Rare chronic palpitations with panic attacks per pt, denies associated dizziness or lightheadedness. She reports intermittent sustained "trembling/twitches" of right upper or lower extremity ongoing x yrs, associated with migraines with aura and weakness. Denies associated altered consciousness. Last occurrence > 1 yr ago. Patient denies chest pain, fever, or chills. Physical Exam Vital Signs Vitals BP 96/65 (Pt asymptomatic, reports within chronic usual range of blood pressure) P 66 TEMP 98.7 SP02 98% on RA RESP 16 Physical Full cervical extension range of motion without pain Full TMJ range of motion TMD 3.5 finger breaths Mallampati Score 3 Dentition: intact, several missing back teeth upper and lower, chipped back right lower teeth and loose upper right back tooth; denies caps/crowns, implants or bridges Lungs: normal respiratory effort. Clear throughout to auscultation, no adventitious breath sounds Cardiac: regular rate and rhythm, no murmurs noted Carotid arteries: negative bruit bilat Extremities: no distal extremity edema Lab Results Anesthesia Preop Results Results Anesthesia Widget: WBC 8.38 K/uL (4.8-10.8) 11/23/21 Hgb 13.8 g/dL (12.0-16.0) 11/23/21 Hct 42.5 % (37-47) 11/23/21 Plt 322 K/uL (130-400) 11/23/21 Na 140 mmol/L (136-145) 11/23/21 K 4.6 mmol/L (3.5-5.1) 11/23/21 Cl 110 mmol/L (98-107) H 11/23/21 CO2 26 mmol/L (21-32) 11/23/21 BUN 19 mg/dl (7-18) H 11/23/21 Creat 0.93 mg/dl (0.6-1.2) 11/23/21 Glucose Level 92 mg/dl (70-99) 11/23/21 PT 10.0 Seconds (9.0-12.0) 11/23/21 PTT 26.6 Seconds (21.0-31.0) 11/23/21 INR 1.0 (0.9-1.1) 11/23/21 TSH 2.260 uIu/ml (0.300-4.500) 11/23/21 Urine Color Yellow 11/23/21 Urine Appearance Clear (Clear) 11/23/21 Urine pH 5.5 (4.5-7.5) 11/23/21 Urine Specific [place] 1.024 (1.000-1.030) 11/23/21 Urine Protein Negative (Negative) 11/23/21 Urine Glucose (UA) Negative (Negative) 11/23/21 Urine Ketones Negative (Negative) 11/23/21 Urine Blood 2+ (Negative) H 11/23/21 Urine Nitrite Negative (Negative) 11/23/21 Urine Bilirubin Negative (Negative) 11/23/21 Urine Urobilinogen Negative (Negative) 11/23/21 Urine Leukocyte Esterase Negative (Negative) 11/23/21 Urine WBC (Auto) 1-5 /hpf (0-5) 11/23/21 Urine RBC (Auto) 5-10 /hpf (0-4) H 11/23/21 Urine Hyaline Casts (Auto) 0 /lpf (0-5) 11/23/21 Urine Epithelial Cells (Auto) >30 /lpf (0-5) H 11/23/21 Urine Bacteria (Auto) Negative (Negative) 11/23/21 Blood Type A Positive 11/23/21 Antibody Screen NEGATIVE 11/23/21 Testing Electrocardiogram Date: 11/23/21 Normal sinus rhythm, rate 65 bpm. Chest X-Ray Date: 11/23/21 FINDINGS: The cardiomediastinal and hilar silhouettes are within normal limits. There is no pneumothorax, pleural effusion, airspace consolidation or overt pulmonary edema. The bones of the chest appear grossly intact. IMPRESSION: No acute process. Other Testing Pituitary MRI 08/15/2021: FINDINGS: There are no areas of restricted diffusion to suggest acute infarction. The midline structures are intact. The paranasal sinuses are clear. The mastoid air cells are clear. The ventricles and sulci are within normal limits for age. There is no mass, hematoma, midline shift. The major vascular flow-voids at the skull base are well maintained. Postcontrast sequences show no areas of abnormal enhancement. The pituitary gland is normal in size and demonstrate a normal posterior pituitary bright spot. The pituitary stalk is normal and course and caliber. The pituitary gland enhances homogeneously. No suprasellar masses identified. IMPRESSION: 1. No acute intracranial abnormality. 2. Normal pituitary gland.
[~2022-01-31 07:18] MED LIST changes: +ACETAMINOPHEN 500 MG TAB PO SCH; +CeleBREX 200 MG CAP PO SCH; +GABAPENTIN 900 MG DOSE PO SCH; -IBUP-1428 PO; +LR 15ML/HR IV SCH; +SUGAMMADEX SODIUM 200 MG/2 ML VIAL IV ONE; +ceFAZolin 2000MG 2,000 MG/15 ML SYR IV SCH
[2022-01-31] MEDS ORDERED: NEOSTIGMINE METHYLSULFATE 1 MG/ML 10ML VIAL ONE (08:10)
[2022-01-31] MEDS ORDERED: GLYCOPYRROLATE 0.2 MG/ML VIAL ONE (08:10)
[2022-01-31] MEDS ORDERED: fentaNYL citrate 100 MCG/2 ML VIAL ONE (08:10)
[2022-01-31] MEDS ORDERED: PROPOFOL IV EMULSION 10 MG/ML 20 ML VIAL IV ONE (08:10)
[2022-01-31] MEDS ORDERED: MIDAZOLAM HCL 1 MG/ML 2ML VIAL ONE (08:10)
[2022-01-31] MEDS ORDERED: ONDANSETRON INJ 2 MG/ML 2 ML VIAL ONE (08:10)
[2022-01-31] MEDS ORDERED: DEXAMETHASONE SOD INJ 4 MG/ML VIAL ONE (08:10)
[2022-01-31] MEDS ORDERED: LIDOCAINE 2% 2 ML VIAL/AMP(20MG/ML) INFIL ONE (08:10)
[2022-01-31 08:37] LABS: Basophils # (auto) 0.02 K/uL (0-0.2); Basophils % (auto) 0.2 %; Eosinophils # (auto) 0.18 K/uL (0-0.5); Eosinophils % (auto) 2.1 %; Hematocrit (blood only) 41.6 % (37-47); Hemoglobin 14.1 g/dL (12.0-16.0); Immature Granulocytes # (auto) 0.01 K/uL (0.00-0.02); Immature Granulocytes % (auto) 0.1 %; Lymphocytes # (auto) 2.17 K/uL (1.2-3.4); Lymphocytes % (auto) 25.5 %; Mean Corpuscular Hemoglobin 31.9 pg (25-34); Mean Corpuscular Volume 94.1 fL (80-100); Mean Platelet Volume 10.3 fL (7.4-10.4); Monocytes # (auto) 0.64 K/uL (0.11-0.59); Monocytes % (auto) 7.5 %; Neutrophils # (auto) 5.49 K/uL (1.4-6.5); Neutrophils % (auto) 64.6 %; Platelet Count 301 K/uL (130-400); RDW Coefficient of Variation 13.9 % (11.5-14.5); RDW Standard Deviation 47.9 fL (36.4-46.3); Red Blood Count 4.42 M/uL (4.2-5.4); White Blood Count 8.51 K/uL (4.8-10.8)
[2022-01-31 08:43] LABS: Mean Corpuscular Hgb Conc 33.9 g/dL (32-36)
[2022-01-31] MEDS ORDERED: ATROPINE SULFATE 0.1 MG/ML 10ML SYR IV PRN (08:46)
[2022-01-31] MEDS ORDERED: ONDANSETRON INJ 2 MG/ML 2 ML VIAL IV PRN ×2 (08:46→12:32)
[2022-01-31] MEDS ORDERED: fentaNYL citrate 100 MCG/2 ML VIAL IV PRN (08:46)
[2022-01-31] MEDS ORDERED: HYDROmorphone INJ 1 MG/ML SYRINGE IV PRN ×2 (08:46→12:32)
[2022-01-31] MEDS ORDERED: ePHEDrine sulfate 50 MG/ML AMP IV PRN (08:46)
--- NOTE | 2022-01-31 08:46 | History & Physical Bridge Note ---
Date of Service January 31, 2022 History & Physical Bridge Note I have examined the patient, reviewed the History & Physical and in the interval since the performance of the History & Physical I have noted the following changes of clinical significance: no changes noted
--- NOTE | 2022-01-31 08:47 | History & Physical Report ---
Date of Service January 31, 2022 Assessment & Plan (1) Neurogenic claudication due to lumbar spinal stenosis: Plan: L5-S1 decompression fusion History of Present Illness Chief Complaint: Back and bilateral leg pain Primary Care Provider: Nathan Duran MD This is a 39-year-old female who presents with persistent back and leg pain. Failing course of nonoperative care she is here for surgical invention. Allergies Allergy/AdvReac Type Severity Reaction Status Date / Time adhesive Allergy Mild Skin Verified 01/31/22 07:59 Irritation Home Medications Medication Instructions Recorded Confirmed Type ibuprofen 800 mg tablet 800 mg PO Q8H PRN #30 tab 07/10/21 01/31/22 Rx cholecalciferol (vitamin D3) 50 50 mcg PO QAM 11/13/21 01/31/22 History mcg (2,000 unit) tablet (Vitamin D3) levothyroxine 50 mcg tablet 50 mcg PO QAM 11/13/21 01/31/22 History Past Med/Surg History Medical History (Updated 01/31/22 @ 08:47 by Jarrod Dutton DO) Acid reflux rare Anemia 13.8/42.5 11/2021 pre-op labs Fibromyalgia History of anesthesia reaction woke up during hand surgery in 2002 with initial carpal tunnel release/ severe hypotension after gallbladder surgery once back to medical unit History of COVID-05 June 2020 > not hospitalized > progressive dyspnea > atelectatic changes on CXR 06/2020 > pt reports residual dyspnea on exertion, cough and wheezing Hx of sepsis 2013 due to dental infection Hypermobility of joint Hypothyroidism Migraine Orthostatic hypotension lightheaded with positional change, denies syncope x several yrs Osteoarthritis Peripheral neuropathy Raynauds syndrome Schmorl's nodes Spinal stenosis Stress incontinence mild Vitamin D deficiency Surgical History History of dilatation and curettage History of esophagogastroduodenoscopy (EGD) History of tooth extraction S/p bilateral carpal tunnel release S/P cholecystectomy 11/04/2017: Grade 2 view, MAC#3, ETT#7.0. No issues per anesthesia postop progress note. S/P tubal ligation [place] teeth removed Family History Mother Cancer Colorectal cancer Cervical cancer Skin cancer Denies family history of Ovarian cancer Prostate cancer Breast cancer Lung cancer Social History Smoking Status: Current every day smoker Tobacco Type: Cigarettes and E-cigarettes / Vaping Cigarettes Per Day: 5 cigs per day; Second Hand Exposure: No; Do You Dip or Chew Tobacco: No; Tobacco Cessation Education Requested by Patient: No Hx Alcohol Use: No Hx Substance Use: No Preferred Language: Italian Communication Ability: Effective Reheater Helper Required: No Beliefs That Will Affect Care: None marital status: Single Current Living Situation: Significant Other Current Living Situation Comment: lives with friend current occupational status: disabled Other Information That Helps Us Care for You: No Feels Safe at Home: Yes Safety Concerns: Feels Safe At This Time Dental Care, Regularly: Yes Seatbelt Use: always Sunscreen Use: Yes Assistive Devices: Glasses Physical Exam Physical Exam: Patient is alert and oriented Heart regular rhythm Lungs clear Results & Data ([facility]) Vital Signs (Past 12 Hours) Vital Signs Temp Pulse Resp BP Pulse Ox 01/31/22 08:13 36.8 C 68 18 110/61 97
[2022-01-31 08:48] LABS: Partial Thromboplastin Time 27.2 Seconds (21.0-31.0); Prothrombin Time 11.1 Seconds (9.0-12.0)
[2022-01-31] MEDS ORDERED: BUPIVACAINE/EPINEPHRINE 0.25% 1:200,000 30 ML VIAL ONE (08:54)
[2022-01-31] MEDS ORDERED: ceFAZolin 330 MG/ML 1 GM VIAL ONE (08:54)
[2022-01-31 09:01] LABS: BUN Creatinine Ratio 14.8 (10-20); Calcium 9.3 mg/dl (8.5-10.1); Est GFR (Non-African American) 77.7 ml/min
[2022-01-31] MEDS ORDERED: HYDROmorphone INJ 2 MG/ML SYR/VIAL ONE (09:26)
[2022-01-31] MEDS ORDERED: PHENYLEPHRINE HCL 10 MG/ML VIAL ONE (09:41)
[2022-01-31] MEDS ORDERED: ePHEDrine sulfate 50 MG/ML AMP ONE (09:41)
[2022-01-31] MEDS ORDERED: FLOSEAL HEMOSTATIC MATRIX 10ML TOP ONE (09:44)
--- NOTE | 2022-01-31 10:47 | Operative Report ---
Post Operative Report Pre & Post Diagnosis Operation Date: 01/31/22 09:05 Pre-Op Diagnosis: Spinal Stenosis of Lumbar Region with Radiculopathy Post-Op Diagnosis: Spinal Stenosis of Lumbar Region with Radiculopathy I identified the patient and participated in the time-out.: Yes Procedure Operation Date: 01/31/22 09:05 Actual Procedures 1 lumbar decompression bilateral medial facetectomies and foraminotomies L4-L5 L5-S1. #2 posterior spinal fusion L5-S1. #3 placement posterior instrumentation L5-S1. #4 interbody fusion L5-S1. #5 placement of titanium cage 10 x 22 mm at L5-S1. #6 placement locally harvested morselized autograft in the posterior gutters per #7 placement of infuse collagen sponge combined with master graft and posterior lateral gutters and I factor and interbody space. Surgeon Jarrod Dutton, Non Destructive Testing Supervisor Gemma Nguyễn Estimated Blood Loss 100 Findings See Below The patient is 5 foot 4 inches tall weighing over 96 kg with a BMI in excess of 36. The patient's body habitus did contribute to significant technical difficulty requiring her deepest retractors and longest instruments in order to perform her procedure. This at least 50% improved operative time. Specimens None Indications This is a 39-year-old female who presents with above-mentioned diagnosis after failing course of nonoperative care is here for the above-mentioned procedure. Description of Procedure Patient was met with identified informed consent obtained. Patient was then taken to the operative suite underwent ablation placed in a prone position on the Mamadou table atop the [place] frame. All bony prominences well-padded eyes inspected to ensure no external pressure placed upon them. This point the lumbar spine was prepped and draped in a sterile fashion. Sharp dissection with the assistance of Bovie cautery was performed down to and exposing the lamina and transverse processes of L5 and the sacral ala bilaterally. From a caudal cephalad fashion complete laminectomy of L5 was performed partial laminectomy of L4 was performed and bilateral medial facetectomies and foraminotomies addressing all spinal stenosis. Pedicle screws then placed in L5 and S1 levels bilaterally with assistance of fluoroscopy the proper sized mary placed. By way of a transforaminal portion of right complete discectomy was performed endplates curetted to subcortically bone and a 10 x 22 mm titanium cage filled I factor tapped in position. The rods were then compressed locked into final position bilaterally. The transverse processes of L5 and sacral ala burred to subcortical bleeding bone. Infuse collagen sponge master graft local autograft was placed in the posterior gutters. 15 round THELMA inserted. The incision was then closed with 1 Vicryl the fascia 2-0 Vicryl subcutaneously and 4 Monocryl for final skin closure. Steri-Strips dressings placed. Patient waken taken to PACU stable condition. Please note spinal cord monitoring was utilized at the procedure no changes noted. Lastly Gemma Nguyễn was present at the entire surgery involved the patient positioning complex portions of the surgery and final skin closure. I attest to the content of the Intraoperative Record and any orders documented therein. Any exceptions are noted below.
--- NOTE | 2022-01-31 11:03 | Fluoroscopy Report ---
FL lumbar spine 2-3V CLINICAL HISTORY: L5-S1 DFI TECHNIQUE: 2 views were obtained with the C-arm in the OR with the above procedure. Total fluoroscopy time was 29.3 seconds. Total skin dose was 28.3 mGy. Comparison: None available at the time of this dictation. FINDINGS/IMPRESSION: Intraoperative images were obtained of L4-L5 decompression and fusion. Please correlate with intraoperative fluoroscopy and operative report. ACT 112: Negative or not required by law. Electronically signed by: Rufino Cancino M.D. 01/31/2022 11:01 AM
[2022-01-31] MEDS ORDERED: PROMETHAZINE HCL INJ 25 MG/ML 1 ML VIAL ONE (11:21)
--- NOTE | 2022-01-31 11:58 | Anesthesiology Progress Note ---
Date of Service January 31, 2022 Anesthesia Post Procedure Vital Signs Vital Signs: Temp Pulse Resp BP Pulse Ox 01/31/22 11:40 66 17 112/70 98 01/31/22 11:30 71 12 124/78 97 01/31/22 11:20 89 22 141/63 H 94 01/31/22 11:10 77 23 121/69 98 01/31/22 11:03 97.2 F L 102 H 12 120/78 98 01/31/22 08:13 98.2 F 68 18 110/61 97 Pain Intensity Bilateral Leg: Pain Intensity: 0 Transfer of Care Handoff Completed per policy Notes Mental Status: alert / awake / arousable and participated in evaluation Patient Amnestic to Procedure: Yes Nausea / Vomiting: adequately controlled Pain: adequately controlled Airway Patency, RR, SpO2: stable & adequate BP & HR: stable & adequate Hydration State: stable & adequate Anesthetic Complications: no major complications apparent and Pt Satisfied with anesthetic care
[2022-01-31] MEDS ORDERED: HYDROmorphone INJ 0.5 MG/0.5 ML SYR IV PRN (12:32)
[2022-01-31] MEDS ORDERED: ACETAMINOPHEN 1,000 MG/100 ML VIAL IV PRN (12:32)
[2022-01-31] MEDS ORDERED: ONDANSETRON 4 MG OD TAB PO PRN (12:32)
[2022-01-31] MEDS ORDERED: hydrOXYzine HCl 25 MG TAB PO PRN (12:32)
[2022-01-31] MEDS ORDERED: NALOXONE HCL 0.4 MG/1 ML VIAL/CARP IV PRN (12:32)
[2022-01-31] MEDS ORDERED: LORazepam 0.5 MG TAB PO PRN (12:32)
[2022-01-31] MEDS ORDERED: ACETAMINOPHEN 500 MG TAB PO PRN (12:32)
[2022-01-31] MEDS ORDERED: DO NOT ADMINISTER FLU VACCINE PRN (12:32)
[2022-01-31] MEDS ORDERED: PROMETHAZINE HCL 12.5 MG in SODIUM CHLORIDE 0.9% 50 ML IV PRN (12:32)
[2022-01-31] MEDS ORDERED: LORazepam 2 MG/1 ML VIAL IV PRN (12:32)
[2022-01-31] MEDS ORDERED: DO NOT ADMINISTER PNEUMOCOCCAL VACCINE PRN (12:32)
[2022-01-31] MEDS ORDERED: ALUMINUM/MAGNESIUM SUSP 30 ML UDC PO PRN (12:32)
[2022-01-31] MEDS ORDERED: MAGNESIUM HYDROXIDE SUSP 30 ML UDC PO PRN (12:32)
[2022-01-31] MEDS ORDERED: FAMOTIDINE 20 MG TAB PO PRN (12:32)
[2022-01-31] MEDS ORDERED: SOD PHOSPHATE/SOD BIPHOSPHATE ENEMA 132 ML BTL PR PRN (12:32)
[2022-01-31] MEDS ORDERED: diphenhydrAMINE Capsule 25 MG CAP PO PRN (12:32)
[2022-01-31] MEDS ORDERED: bisacodyL 10 MG SUPP PR PRN (12:32)
[2022-01-31] MEDS ORDERED: METOCLOPRAMIDE HCL INJ 5 MG/ML 2 ML VIAL IV PRN (12:32)
[2022-01-31] MEDS: LACTATED RINGER'S 1,000 ML IV SCH ×2 (13:01→21:44)
[2022-01-31] MEDS: KETOROLAC TROMETHAMINE 15 MG/ML VIAL IV SCH ×2 (13:22→18:22)
--- NOTE | 2022-01-31 18:08 | Consultation ---
Date of Consultation January 31, 2022 Assessment & Plan (1) Neurogenic claudication due to lumbar spinal stenosis: extensive lumbar surgery today by Dr Dutton - #1 lumbar decompression bilateral medial facetectomies and foraminotomies L4-L5 L5-S1. #2 posterior spinal fusion L5-S1. #3 placement posterior instrumentation L5-S1. #4 interbody fusion L5-S1. #5 placement of titanium cage 10 x 22 mm at L5-S1. #6 placement locally harvested morselized autograft in the posterior gutters per #7 placement of infuse collagen sponge combined with master graft and posterior lateral gutters and I factor and interbody space. Defer pain management, fluids, disposition to surgery. (2) Hypothyroidism: TSH 11/2021 wnl. Cont synthroid. (3) Fibromyalgia: patient states she was diagnosed with such in the past. has f/u with rheumatology later this month as outpatient. (4) Vitamin D deficiency: 25-OH vit D level 19 in November 2021. To optimize healing will use 5000 IU of Vit D daily while here. She was taking a vitamin D supplement at home. (5) Chronic foot pain: no evidence of any synovitis on examination today in either foot or ankle. she reports having had an MRI of her L foot but I cannot find a report for such in our EMR. she has f/u with rheumatology later this month, and I encouraged her to see [facility] for any lingering problems related to her feet as needed. (6) DVT prophylaxis: per orthopedics. SCDs for now. chemical means contraindicated at this time due to today's lumbar surgery. Thank you for this consult. We will perform periodic chart checks but will formally sign off at this time. Please call with any questions or concerns. History of Present Illness Requesting Physician: Jay Jay Dutton DO Reason for Consultation: post-op medical management Attending Physician: Jarrod Dutton, DO History of Present Illness 47yo female with history of hypothyroidism, Raynoud's, COVID-19 in May 2020, ?COVID toes with her illness, chronic lumbar back pain, and family history of rheumatic disease presented today for elective lumbar decompression/fusion surgery by Dr Dutton. She has suffered from chronic low back pain with resulting b/l LE radiculopathy, worse on the left. She also reports b/l foot pain, often the mid-foot, and has required medrol dose packs for this. She is scheduled to see rheumatology later this month to r/o rheumatoid or SLE as potential causes. Post-op she denied any chest pain, shortness of breath, abdominal pain, nausea or emesis (although she may have had emesis in the PACU?). Allergies Allergy/AdvReac Type Severity Reaction Status Date / Time adhesive Allergy Mild Skin Verified 01/31/22 07:59 Irritation Home Medications Medication Instructions Recorded Confirmed Type ibuprofen 800 mg tablet 800 mg PO Q8H PRN #30 tab 07/10/21 01/31/22 Rx cholecalciferol (vitamin D3) 50 50 mcg PO QAM 11/13/21 01/31/22 History mcg (2,000 unit) tablet (Vitamin D3) levothyroxine 50 mcg tablet 50 mcg PO QAM 11/13/21 01/31/22 History oxycodone 5 mg tablet 5 mg PO Q6H PRN #30 tab 01/31/22 Rx tramadol 50 mg tablet 50 mg PO Q6H PRN #30 tab 01/31/22 Rx Patient History Medical History Acid reflux rare Anemia 13.8/42.5 11/2021 pre-op labs Fibromyalgia History of anesthesia reaction woke up during hand surgery in 2002 with initial carpal tunnel release/ severe hypotension after gallbladder surgery once back to medical unit History of COVID-05 June 2020 > not hospitalized > progressive dyspnea > atelectatic changes on CXR 06/2020 > pt reports residual dyspnea on exertion, cough and wheezing Hx of sepsis 2013 due to dental infection Hypermobility of joint Hypothyroidism Migraine Orthostatic hypotension lightheaded with positional change, denies syncope x several yrs Osteoarthritis Peripheral neuropathy Raynauds syndrome Schmorl's nodes Spinal stenosis Stress incontinence mild Vitamin D deficiency Surgical History History of dilatation and curettage History of esophagogastroduodenoscopy (EGD) History of tooth extraction S/p bilateral carpal tunnel release S/P cholecystectomy 11/04/2017: Grade 2 view, MAC#3, ETT#7.0. No issues per anesthesia postop progress note. S/P tubal ligation [place] teeth removed Family History (Updated 01/31/22 @ 20:27 by Gustavo Reyes) Mother Cancer Colorectal cancer Cervical cancer Skin cancer Rheumatoid arthritis Uncle SLE (systemic lupus erythematosus) maternal uncle; he from SLE complications in his 20s Denies family history of Ovarian cancer Prostate cancer Breast cancer Lung cancer Social History Smoking Status: Current every day smoker Tobacco Type: Cigarettes and E-cigarettes / Vaping Cigarettes Per Day: 5 cigs per day; Second Hand Exposure: No; Do You Dip or Chew Tobacco: No; Tobacco Cessation Education Requested by Patient: No Hx Alcohol Use: No Hx Substance Use: No Preferred Language: Kiswahili Communication Ability: Effective Surgical Instrument Technician Required: No Beliefs That Will Affect Care: None marital status: Single Current Living Situation: Significant Other Current Living Situation Comment: lives with friend current occupational status: disabled Other Information That Helps Us Care for You: No Feels Safe at Home: Yes Safety Concerns: Feels Safe At This Time Dental Care, Regularly: Yes Seatbelt Use: always Sunscreen Use: Yes Assistive Devices: None Review of Systems Review of Systems: gen - no fevers, able to eat this evening, no weight loss HEENT - no dysphagia except for occasional; no nasal symptoms or congestion CV - no chest pain pulm - denies dyspnea GI - no abd pain; no nausea/emesis after eating this evening; no recent blood in stool - no dysuria musculo - chronic low back pain; chronic b/l foot pain/swelling (latter intermittent) skin - no rash endo - denies diabetes neuro - chronic radicular pain of b/l LEs, worse on L; numbness and radicular pain extend to the L foot lymph - no recent lymph nodes detected psych - multiple stressors - 2 cats recently , etc Physical Exam Physical Exam: gen - NAD, pleasant eyes - pupils equal & round HENT - MMM neck - supple heart - RRR, s1s2, no murmur lungs - CTA b/l abd - soft NT ND BS+ ext - pulses feet 2+ b/l skin - no rash; dressings intact low back musculo - b/l feet - no synovitis of the midfoot, the ankle, or any toes neuro - strength 5/5 x 4 exts; DTRs symmetric upper/lower exts psych - a/o x 3 Results & Data ([facility]) Vital Signs (Past 12 Hours) Vital Signs Temp Pulse Resp BP Pulse Ox 01/31/22 15:15 36.7 C 78 16 123/69 96 01/31/22 14:10 36.4 C L 63 14 94/62 L 98 01/31/22 13:10 36.4 C L 70 16 102/65 99 01/31/22 12:40 36.4 C L 68 14 93/68 L 98 01/31/22 12:10 36.4 C L 73 16 96/60 L 98 01/31/22 12:00 36.2 C L 64 17 105/65 98 01/31/22 11:50 36.2 C L 64 18 111/65 98 01/31/22 11:40 66 17 112/70 98 01/31/22 11:30 71 12 124/78 97 01/31/22 11:20 89 22 141/63 H 94 01/31/22 11:10 77 23 121/69 98 01/31/22 11:03 36.2 C L 102 H 12 120/78 98 01/31/22 08:13 36.8 C 68 18 110/61 97 Laboratory Results Laboratory Results - last 24 hr 01/31/22 01/31/22 01/31/22 08:24 08:24 08:24 WBC 8.51 RBC 4.42 Hgb 14.1 Hct 41.6 MCV 94.1 MCH 31.9 MCHC 33.9 RDW Std Deviation 47.9 H RDW Coeff of Clint 13.9 Plt Count 301 MPV 10.3 Immature Gran % (Auto) 0.1 Neut % (Auto) 64.6 Lymph % (Auto) 25.5 [place] % (Auto) 7.5 Eos % (Auto) 2.1 Baso % (Auto) 0.2 Neut # (Auto) 5.49 Lymph # (Auto) 2.17 [place] # (Auto) 0.64 H Eos # (Auto) 0.18 Baso # (Auto) 0.02 Immature Gran # (Auto) 0.01 PT 11.1 INR 1.0 APTT 27.2 PTT Ratio 1.0 Sodium Potassium Chloride Carbon Dioxide Anion Gap BUN Creatinine Est Cr Clr Drug Dosing Est GFR ( Amer) Est GFR (Non-Af Amer) BUN/Creatinine Ratio Glucose Calcium SARS-CoV-2, RNA, NAAT Blood Type A Positive Antibody Screen NEGATIVE 01/31/22 01/31/22 08:24 Unknown WBC RBC Hgb Hct MCV MCH MCHC RDW Std Deviation RDW Coeff of Clint Plt Count MPV Immature Gran % (Auto) Neut % (Auto) Lymph % (Auto) [place] % (Auto) Eos % (Auto) Baso % (Auto) Neut # (Auto) Lymph # (Auto) [place] # (Auto) Eos # (Auto) Baso # (Auto) Immature Gran # (Auto) PT INR APTT PTT Ratio Sodium 139 Potassium 4.0 Chloride 108 H Carbon Dioxide 26 Anion Gap 5 BUN 13 Creatinine 0.88 Est Cr Clr Drug Dosing 88.0 Est GFR ( Amer) 90.0 Est GFR (Non-Af Amer) 77.7 BUN/Creatinine Ratio 14.8 Glucose 92 Calcium 9.3 SARS-CoV-2, RNA, NAAT NEGATIVE Blood Type Antibody Screen PG Care Time/CCT Total # of Minutes Spent Total Time Spent with Patient: Total time spent is greater than 50% in coordination of care (as documented) at patient's floor/unit and/or counseling patient: Coding Level of Care Code 14749 Subseq Hosp Care Lvl 3 Diagnoses Neurogenic claudication due to lumbar spinal stenosis M48.062 Hypothyroidism E03.9 Fibromyalgia M79.7 Vitamin D deficiency E55.9 Chronic foot pain M79.673; G89.29 DVT prophylaxis Z29.9
[2022-01-31] MEDS: ceFAZolin 2000MG 2,000 MG/15 ML SYR IV SCH (18:23)
[2022-01-31] MEDS: DOCUSATE SODIUM/SENNA 50/8.6MG TAB PO SCH (20:29)
[2022-02-01] MEDS: KETOROLAC TROMETHAMINE 15 MG/ML VIAL IV SCH ×2 (00:10→06:01)
[2022-02-01] MEDS: ceFAZolin 2000MG 2,000 MG/15 ML SYR IV SCH (02:20)
[2022-02-01] MEDS: POLYETHYLENE (MIRALAX) 17 GM PACK PO SCH ×4 (05:57→23:28)
[2022-02-01] MEDS: LEVOTHYROXINE SODIUM 50 MCG TABLET PO SCH (06:01)
[2022-02-01 07:28] LABS: Basophils # (auto) 0.01 K/uL (0-0.2); Basophils % (auto) 0.1 %; Eosinophils # (auto) 0.05 K/uL (0-0.5); Eosinophils % (auto) 0.3 %; Hematocrit (blood only) 36.9 % (37-47); Hemoglobin 12.4 g/dL (12.0-16.0); Immature Granulocytes # (auto) 0.05 K/uL (0.00-0.02); Immature Granulocytes % (auto) 0.3 %; Lymphocytes # (auto) 2.49 K/uL (1.2-3.4); Lymphocytes % (auto) 14.4 %; Mean Corpuscular Hgb Conc 33.6 g/dL (32-36); Mean Corpuscular Volume 95.1 fL (80-100); Mean Platelet Volume 11.1 fL (7.4-10.4); Monocytes # (auto) 0.98 K/uL (0.11-0.59); Monocytes % (auto) 5.7 %; Neutrophils # (auto) 13.75 K/uL (1.4-6.5); Neutrophils % (auto) 79.2 %; Platelet Count 255 K/uL (130-400); RDW Standard Deviation 48.1 fL (36.4-46.3); Red Blood Count 3.88 M/uL (4.2-5.4); White Blood Count 17.33 K/uL (4.8-10.8)
[2022-02-01 08:05] LABS: Calcium 8.7 mg/dl (8.5-10.1); Creatinine Clr Calc Pharmacy 90.1 ml/min; Est GFR (African American) 92.6 ml/min; Est GFR (Non-African American) 79.9 ml/min
[2022-02-01] MEDS: CHOLECALCIFEROL 5,000 UNITS 125 MCG TAB PO SCH (08:19)
[2022-02-01] MEDS: CHOLECALCIFEROL 1,000 UNITS 25 MCG TAB PO SCH (08:20)
[2022-02-01] MEDS: dexAMETHasone 6 MG in SYRINGE 0 ML IV SCH (08:20)
[2022-02-01] MEDS: traMADol HCL 50 MG TABLET PO PRN ×2 (09:23→20:38)
--- NOTE | 2022-02-01 13:04 | Orthopedic Progress Note ---
Date of Service February 01, 2022 Assessment & Plan (1) Neurogenic claudication due to lumbar spinal stenosis: Plan: At this time we will continue physical therapy monitor THELMA operatively discharge home in the next few days. Admission and Anticipated Discharge Date Admission Date: January 31, 2022 Subjective Patient's back pain is controlled leg symptoms improved Physical Exam Physical Exam: Patient appears comfortable. She is ambulating well. Results & Data ([facility]) Vital Signs (Past 12 Hours) Vital Signs Temp Pulse Resp BP Pulse Ox 02/01/22 11:10 36.8 C 75 18 130/66 98 02/01/22 07:30 36.5 C 70 16 99/63 L 98 02/01/22 02:50 36.7 C 76 16 107/65 99
[2022-02-01] MEDS: oxyCODONE HCL IR 5 MG TAB (IMMEDIATE RELEASE) PO PRN (16:17)
[2022-02-01] MEDS: DOCUSATE SODIUM/SENNA 50/8.6MG TAB PO SCH (20:38)
[2022-02-02] MEDS: oxyCODONE HCL IR 5 MG TAB (IMMEDIATE RELEASE) PO PRN (06:09)
[2022-02-02] MEDS: LEVOTHYROXINE SODIUM 50 MCG TABLET PO SCH (06:09)
[2022-02-02] MEDS ORDERED: Nursing to Pharmacy Communication SCH (06:15)
[2022-02-02] MEDS: POLYETHYLENE (MIRALAX) 17 GM PACK PO SCH (07:00)
[2022-02-02] MEDS: CHOLECALCIFEROL 5,000 UNITS 125 MCG TAB PO SCH (08:31)
[2022-02-02] MEDS: CHOLECALCIFEROL 1,000 UNITS 25 MCG TAB PO SCH (08:31)
[2022-02-02] MEDS: dexAMETHasone 6 MG in SYRINGE 0 ML IV SCH (08:31)
--- NOTE | 2022-02-02 08:37 | Discharge Summary ---
Date of Service February 02, 2022 Admission HPI Per Admitting Provider This is a 39-year-old female who presents with persistent back and leg pain. Failing course of nonoperative care she is here for surgical invention. Discharge Data Consultations 01/31/22 12:32 Consult Hospitalist Routine Procedures Performed Operation Date: 01/31/22 09:05 Actual Procedures p L5-S1 Decompression and Fusion, Spinal Cord Monitoring(Not Applicable) - Jarrod Dutton DO Hospital Course (1) Neurogenic claudication due to lumbar spinal stenosis: Patient is a pleasant 39-year-old female with history physical examination radiographic images consistent the above-mentioned diagnosis. For this reason she brought to the operating room and undergone a lumbar decompression fusion at L5-S1. She was transferred to PACU in stable condition and then transferred to the orthopedic floor. She was seen by physical therapy postop day 1 for ambulation gait training. Throughout her hospital course her calves remained supple nontender abdomen remained supple nontender. Today postop day #2 she is deemed safe for home discharge. We have reviewed her discharge instructions in detail. We will change her dressing and DC her drain before discharge. We will see her back in the office approximately 2 weeks or sooner develops any increased pain fevers or chills.
== END 2022-02-02 13:08 | disposition home or self-care (01) | DRG 455 ==
LOC: ASU 07:18 → 3W 10:50